=== PATIENT | male | born 1995 | race Caucasian/White ===

== ENCOUNTER 2017-05-09 09:47 | Day surgery (SDC) | payer BC ==
[2017-05-08 13:16] VITALS: BMI 33.5
[2017-05-09] MEDS ORDERED: CEFAZOLIN/Water 2 GM/20 ML SYRINGE ONE (10:01)
[2017-05-09] MEDS ORDERED: Dexamethasone 4 mg/ml Vial ONE (10:20)
[2017-05-09] MEDS ORDERED: Fentanyl 100 MCG/2 ML VIAL ONE (10:20)
[2017-05-09] MEDS ORDERED: Midazolam HCl 2 mg/2 ml Vial ONE (10:20)
[2017-05-09] MEDS ORDERED: Lidocaine 1% PF 5 ML VIAL ONE ×2 (12:44→13:40)
[2017-05-09] MEDS ORDERED: Diprivan 20 ML ONE ×2 (12:44→13:36)
[2017-05-09 13:37] LABS: #Lymphocytes 0.6 thou/uL (1.20-3.40); #Monocytes 0.3 thou/uL (0.11-0.59); %Basophils 0.1 % (0.0-1.0); %Eosinophils 0.3 % (0.0-10.0); %Lymphocytes 6.3 % (21.0-51.0); %Monocytes 2.9 % (0.0-10.0); Hematocrit 45.2 % (42.0-52.0); Mean Platelet Volume 8.4 fL (7.4-10.4); Red Blood Cell (RBC) Count 4.85 mill/uL (4.70-6.10); White Blood Cell (WBC) Count 9.9 thou/uL (4.8-10.8)
[2017-05-09] MEDS ORDERED: Propofol 200 MG/20 ML VIAL ONE (13:40)
[2017-05-09] MEDS ORDERED: Dexamethasone 20 MG/5 ML VIAL ONE ×2 (13:40→13:54)
[2017-05-09] MEDS ORDERED: ePHEDrine/0.9% NaCl/PF SYRINGE 50 mg/10 ml ONE ×2 (13:40→14:08)
[2017-05-09] MEDS ORDERED: Ketorolac Tromethamine 30 MG/ML VIAL ONE ×2 (13:40→14:18)
[2017-05-09] MEDS ORDERED: Ondansetron HCl/PF 4 MG/2 ML Vial ONE ×2 (13:40→13:54)
[2017-05-09] MEDS ORDERED: Bupivacaine HCl 0.5%/Epinephrine 1:200,000/PF 30 ml Vial ONE (13:42)
[2017-05-09 14:00] LABS: Anion Gap 13 mmol/L (10-20); BUN (Urea Nitrogen) 11 mg/dL (8.9-20.6); Calc. Creatinine Clearance 228 mL/min (70-130); Calcium 9.9 mg/dL (7.8-10.44); Carbon Dioxide 28 mmol/L (22-29); Chloride 101 mmol/L (98-107); Estimated GFR-MDRD Greater than 90
--- NOTE | 2017-05-09 15:20 | RAD ---
INTRAOPERATIVE FLUOROSCOPY: Date: 05/09/17 HISTORY: Open reduction and internal fixation right ankle. COMPARISON: None. EXPOSURE: 8.4 seconds. 0.23 mGy*cm^2. FINDINGS: Intraprocedural fluoroscopy was provided for Dr. Bermudez. Three images demonstrate internal fixation h ardware at the level of the distal fibula and proximal tibia. IMPRESSION: Fluoroscopy as above. POS: [facility]
--- NOTE | 2017-05-14 08:14 | OP ---
PREOPERATIVE DIAGNOSES: Right lateral malleolus ankle fracture with deltoid ligament disruption and dislocation. POSTOPERATIVE DIAGNOSES: Right lateral malleolus ankle fracture with deltoid ligament disruption and dislocation. SURGEON: Champ Bermudez M.D. ANESTHESIA: General. BLOOD LOSS: Minimal. SPECIMEN: None. DRAINS: None. COMPLICATIONS: None. DESCRIPTION OF PROCEDURE: The patient was taken to the operating room where general anesthesia was i nduced. The ankle was opened laterally. Dissection WAS carried down to the lateral malleolus and fi bula. Subperiosteal dissection was performed. I removed hematoma with curettes and irrigated the wo und free of hematoma and cleared the margins of the fracture. Fracture was anatomically reduced and fixed with an AP lag screw and then the lateral [employer] 1/3 tubular plate was applied. Attention was turned medially where there still widening of the clear space. The medial side was opened. The del toid ligament was removed from the joint space itself and then repaired anatomically. Irrigation per formed. The skin was closed with 2-0 Vicryl and glenn. Sterile dressings applied and the patient placed in a splint.
== END 2017-05-09 16:15 | disposition home or self-care (01) ==
LOC: SDC 09:47
PROVIDERS: ATTEND Orthopaedic Surgery
PROC: 0QSJ04Z Reposition Right Fibula with Internal Fixation Device, Open Approach (ICD-10-PCS; principal; 2017-05-09)
PROC: 0MQQ0ZZ Repair Right Ankle Bursa and Ligament, Open Approach (ICD-10-PCS; principal; 2017-05-09)
DX: S82.61XA Displaced fracture of lateral malleolus of right fibula, initial encounter for closed fracture (principal); S93.421A Sprain of deltoid ligament of right ankle, initial encounter; W18.42XA Slipping, tripping and stumbling without falling due to stepping into hole or opening, initial encounter
CPT/HCPCS: 36415; 76001; 80048; 85025; C1713; J0670; J1100; J1170; J1885; J2001; J2250; J2405; J2704; J3010

== ENCOUNTER 2022-01-13 23:34 | Inpatient (IN) | payer SELFPAY ==
[2022-01-14] MEDS ORDERED: Acetaminophen 325 MG TAB PO PRN (01:43)
[2022-01-14] MEDS ORDERED: Ondansetron PF 4 MG/2 ML Vial IVP PRN (01:43)
[2022-01-14] MEDS ORDERED: Lorazepam 1 MG TAB PO PRN (01:46)
[2022-01-14] MEDS ORDERED: Lorazepam 2 MG/ML VIAL IM PRN (01:46)
[2022-01-14] MEDS ORDERED: Electrolyte Replacement Protocol 1 EACH FS SCH (02:00)
[2022-01-14 02:11] LABS: #Lymphocytes 1.7 thou/uL (1.20-3.40); #Monocytes 0.8 thou/uL (0.11-0.59); #Neutrophils 8.1 thou/uL (1.40-6.50); %Basophils 0.1 % (0.0-1.0); %Eosinophils 0.3 % (0.0-10.0); %Lymphocytes 15.8 % (21.0-51.0); %Monocytes 7.8 % (0.0-10.0); Mean Corpuscular HGB CONC 33.3 g/dL (32.0-36.0); Mean Corpuscular Hemoglobin 30.8 pg (27.0-31.0); Mean Corpuscular Volume 92.6 fL (78.0-98.0); Mean Platelet Volume 10.1 fL (7.4-10.4); Platelet Count 193 thou/uL (130-400); RBC Distribution Width 12.3 % (11.5-14.5); Red Blood Cell (RBC) Count 4.54 mill/uL (4.70-6.10); White Blood Cell (WBC) Count 10.7 thou/uL (4.8-10.8)
[2022-01-14] MEDS ORDERED: Amiodarone 450 MG in Dextrose 5% in Water 250 ML IVPB SCH (02:15)
[2022-01-14 02:30] LABS: Phosphorus 3.6 mg/dL (2.3-4.7)
[2022-01-14 02:42] LABS: ALT (SGPT) 81 U/L (8-55); AST (SGOT) 61 U/L (5-34); Alkaline Phosphatase 110 U/L (40-110); Bilirubin, Direct 0.1 mg/dL (0.1-0.3); Bilirubin, Total 0.4 mg/dL (0.2-1.2); Protein, Total 7.8 g/dL (6.0-8.3); Troponin I 0.354 ng/mL (< 0.028)
[2022-01-14 02:43] LABS: Anion Gap 18 mmol/L (10-20); BUN (Urea Nitrogen) 12 mg/dL (8.9-20.6); Calc. Creatinine Clearance 0 mL/min (70-130); Calcium 9.5 mg/dL (7.8-10.44); Carbon Dioxide 20 mmol/L (22-29); Chloride 104 mmol/L (98-107); Estimated GFR 127; Glucose 109 mg/dL (70-105); Magnesium 1.8 mg/dL (1.6-2.6); Sodium 138 mmol/L (136-145)
[2022-01-14] MEDS: Thiamine HCl 200 MG/2 ML VIAL SLOW IVP SCH (03:22)
[2022-01-14 03:33] VITALS: BMI 33.3
[2022-01-14 04:57] LABS: Troponin I 0.533 ng/mL (< 0.028)
[2022-01-14] MEDS ORDERED: Magnesium 2 GM/50 ML(in water) 2 GM in Premix Bag 1 BAG IVPB SCH (08:00)
[2022-01-14 08:33] LABS: Troponin I 0.556 ng/mL (< 0.028)
[2022-01-14] MEDS ORDERED: Enoxaparin Sodium 40 MG/0.4 ML SYRINGE SC SCH (09:00)
[2022-01-14] MEDS: chlordiazePOXIDE HCl 25 MG CAP PO SCH ×3 (09:08→21:38)
[2022-01-14] MEDS: Multivit, Therapeutic 1 TAB PO SCH (09:09)
[2022-01-14] MEDS: Folic Acid 1 MG TAB PO SCH (09:09)
[2022-01-14 11:08] LABS: Amphetamine Not Detected (NotDetected); Barbiturates Screen Not Detected (NotDetected); Benzodiazepine Screen Not Detected (NotDetected); Cocaine Metabolite Screen Not Detected (NotDetected); Methadone Not Detected (NotDetected); Methamphetamine Not Detected (NotDetected); Opiate Screen Not Detected (NotDetected); Oxycodone Screen Not Detected (NotDetected); Phencyclidine (PCP) Not Detected (NotDetected); THC/Cannabinoid Screen Not Detected (NotDetected); Tricyclic Screen Not Detected (NotDetected)
[2022-01-14] MEDS ORDERED: Communication Order-Pharmacy FS SCH (15:45)
[2022-01-14] MEDS: Sodium Chloride 0.9% 1,000 ML IV SCH (23:55)
[2022-01-15] MEDS: Thiamine HCl 200 MG/2 ML VIAL SLOW IVP SCH (01:34)
[2022-01-15] MEDS ORDERED: Lorazepam 1 MG TAB PO PRN (01:46)
[2022-01-15 04:42] LABS: #Eosinphils 0.1 thou/uL (0.0-0.7); #Monocytes 0.9 thou/uL (0.11-0.59); #Neutrophils 5.8 thou/uL (1.40-6.50); %Basophils 0.5 % (0.0-1.0); %Eosinophils 1.5 % (0.0-10.0); %Lymphocytes 22.4 % (21.0-51.0); %Monocytes 10.1 % (0.0-10.0); %Neutrophils 65.5 % (42.0-75.0); Hemoglobin 13.9 g/dL (14.0-18.0); Mean Corpuscular HGB CONC 33.6 g/dL (32.0-36.0); Mean Corpuscular Volume 92.3 fL (78.0-98.0); Mean Platelet Volume 9.2 fL (7.4-10.4); Platelet Count 184 thou/uL (130-400); RBC Distribution Width 12.1 % (11.5-14.5); Red Blood Cell (RBC) Count 4.49 mill/uL (4.70-6.10); White Blood Cell (WBC) Count 8.8 thou/uL (4.8-10.8)
[2022-01-15 05:03] LABS: Anion Gap 13 mmol/L (10-20); BUN (Urea Nitrogen) 10 mg/dL (8.9-20.6); Calc. Creatinine Clearance 217 mL/min (70-130); Calcium 9.2 mg/dL (7.8-10.44); Carbon Dioxide 25 mmol/L (22-29); Chloride 104 mmol/L (98-107); Estimated GFR 126; Glucose 99 mg/dL (70-105); Magnesium 2.1 mg/dL (1.6-2.6); Potassium 3.7 mmol/L (3.5-5.1); Sodium 138 mmol/L (136-145)
[2022-01-15] MEDS ORDERED: Verapamil 5 MG/2 ML VIAL ONE (07:49)
[2022-01-15] MEDS ORDERED: Nitroglycerin 100MG/250ML BOT 250 ML ONE (07:49)
[2022-01-15] MEDS ORDERED: Heparin 10,000 UNITS/ 10 ML VIAL ONE (07:49)
[2022-01-15] MEDS ORDERED: Lidocaine 1% PF 5 ML VIAL ONE (07:50)
[2022-01-15] MEDS ORDERED: Fentanyl 100 MCG/2 ML VIAL ONE (09:05)
[2022-01-15] MEDS ORDERED: Midazolam HCl 2 mg/2 ml Vial ONE (09:06)
[2022-01-15] MEDS ORDERED: Sodium Chloride 0.9% 200 ML IV PRN (09:36)
[2022-01-15] MEDS ORDERED: Acetaminophen/Codeine 30-300mg Tablet PO PRN (09:36)
[2022-01-15] MEDS: chlordiazePOXIDE HCl 25 MG CAP PO SCH (09:56)
[2022-01-15] MEDS: Folic Acid 1 MG TAB PO SCH (09:57)
[2022-01-15] MEDS: Sodium Chloride 0.9% 1,000 ML IV SCH (09:57)
[2022-01-15] MEDS: Multivit, Therapeutic 1 TAB PO SCH (09:57)
[2022-01-15] MEDS ORDERED: Iopamidol 370 76% 100 ML VIAL ONE ×2 (11:25→13:36)
[2022-01-15 16:36] VITALS: BP 131/74; TEMP 97.9
[2022-01-16] MEDS ORDERED: Lorazepam 1 MG TAB PO PRN (01:46)
[2022-01-17] MEDS ORDERED: Lorazepam 0.5 MG TAB PO PRN (01:46)
[2022-01-17] MEDS ORDERED: Thiamine 100 MG TAB PO SCH (02:00)
== END 2022-01-15 17:40 | disposition home or self-care (01) | DRG 282 ==
LOC: ERS 23:52 → 2NO 01-14 00:52
PROVIDERS: ADMIT Student in an Organized Health Care Education/Training Program; ATTEND Student in an Organized Health Care Education/Training Program
PROC: B2111ZZ Fluoroscopy of Multiple Coronary Arteries using Low Osmolar Contrast (ICD-10-PCS; principal; 2022-01-14)
PROC: 5A2204Z Restoration of Cardiac Rhythm, Single (ICD-10-PCS; 2022-01-14)
DX: I47.1 Supraventricular tachycardia (principal); I21.A1 Myocardial infarction type 2; Z20.822 Contact with and (suspected) exposure to COVID-19; F17.210 Nicotine dependence, cigarettes, uncomplicated; F10.10 Alcohol abuse, uncomplicated
CPT/HCPCS: 36415; 71275; 80048; 80076; 80306; 83735; 84100; 84443; 84484; 85025; 93005; 93306; 93458; 93798; 99152; C1769; C1894; J0282; J1644; J2250; J3010; J3411; J3475; J7050; J7070; Q9967; U0003; U0005